=== PATIENT | female | born 2000 | race Two or more races ===

== ENCOUNTER 2024-09-24 17:07 | Outpatient (CLI) | payer OTHER ==
[~2024-09-24] VITALS: Ht 154.9 cm; Wt 80.1 kg
[2024-09-24 17:24] VITALS: BP 130/83
[2024-09-24] MEDS ORDERED: HOME MED LIST COMPLETE! XX SCH (17:30)
[2024-09-24] MEDS ORDERED: ACET-907 PO (17:30)
[2024-09-24 18:32] VITALS: BP 116/67
== END 2024-09-24 18:55 | disposition home or self-care (01) ==
LOC: M LDO 17:07
PROVIDERS: ATTEND Obstetrics & Gynecology
DX: O47.03 False labor before 37 completed weeks of gestation, third trimester (principal); O36.0139 Maternal care for anti-D [Rh] antibodies, third trimester, other fetus; Z3A.36 36 weeks gestation of pregnancy
CPT/HCPCS: 59025; G0463

== ENCOUNTER → 2024-09-24 | Outpatient (REF) | payer OTHER ==
[~2024-09-24] MED LIST: ACET-907 PO
== END ==
LOC: M SFHCWAGY 16:50
PROVIDERS: ATTEND Specialist
DX: Z34.03 Encounter for supervision of normal first pregnancy, third trimester (principal)

== ENCOUNTER 2024-10-17 07:50 | Inpatient (IN) | payer OTHER ==
[~2024-10-17] VITALS: Ht 154.9 cm; Wt 81.4 kg
[2024-10-17] VITALS (44 sets, daily range): BP systolic 91–186; BP diastolic 50–115
[2024-10-17] MEDS ORDERED: MIRA3350 PO (08:20)
[2024-10-17] MEDS ORDERED: HOME MED LIST COMPLETE! XX SCH (08:20)
[2024-10-17] MEDS: miSOPROStol 50MCG 1/2 TABLET SL SCH (09:00)
[2024-10-17] MEDS ORDERED: OXYTOCIN DRIP 30 UNITS in IV 1 EA IV PRN (09:00)
[2024-10-17] MEDS ORDERED: LIDOCAINE 1% MDV 20ML VIAL INFIL PRN (09:00)
[2024-10-17 09:09] LABS: HEMATOCRIT 30.7 % (36.0-47.0); HEMOGLOBIN 10.4 g/dl (12.0-15.5); MEAN CORPUSCULAR HEMOGLOBIN 30.1 pg (27.0-33.0); MEAN CORPUSCULAR HGB CONC 33.9 g/dl (32.0-36.5); PLATELET COUNT, AUTOMATED 240 10^3/uL (150-450); RED BLOOD COUNT 3.45 10^6/uL (4.00-5.40); WHITE BLOOD COUNT 7.9 10^3/uL (4.0-10.0)
[2024-10-17] MEDS ORDERED: EPIDURAL/PCA KEYS XX PRN (15:45)
[2024-10-17] MEDS ORDERED: NALOXONE INJ 0.4MG/1ML VIAL IV PRN (15:45)
[2024-10-17] MEDS ORDERED: diphenhydrAMINE 50MG/ML VIAL IV PRN (15:45)
[2024-10-17] MEDS: FENTANYL/ROPIVACAINE/NACL BAG 100 ML EPIDURAL SCH (16:08)
[2024-10-17] MEDS: OXYTOCIN DRIP 30 UNITS in IV 1 EA IV SCH (17:52)
[2024-10-17] MEDS: ePHEDrine SULFATE 25 MG/5 ML(5MG/ML) SYRINGE IVP PRN (20:18)
[2024-10-17] MEDS: LR 500 ML IV PRN (20:19)
[2024-10-17] MEDS: LR 1,000 ML IV SCH (20:54)
[2024-10-18] VITALS (18 sets, daily range): BP systolic 102–130; BP diastolic 53–66; TEMP 99.4; O2SAT 97–98
[2024-10-18] MEDS: ONDANSETRON 4MG 2ML VIAL IV PRN (01:08)
[2024-10-18] MEDS ORDERED: ceFAZolin 2 GM/D5W 50 ML IV BAG As Ordered ONE (01:47)
[2024-10-18] MEDS ORDERED: AZITHROMYCIN INJ 500MG VIAL As Ordered ONE (01:48)
[2024-10-18] MEDS: BICITRA 30ML SOLN UDC PO ONE (01:55)
[2024-10-18] MEDS: AZITHROMYCIN INJ 500 MG, VIAL MATE ADAPTER 1 EACH in NS 250 ML IV ONE (01:55)
[2024-10-18] MEDS: ceFAZolin SOD 2 GM in IV 1 EA IV ONE (01:55)
[2024-10-18] MEDS ORDERED: LIDOCAINE 2% W/EPINEPHRINE 20ML VIAL **PRES FREE As Ordered ONE (02:10)
[2024-10-18] MEDS ORDERED: ONDANSETRON 4MG 2ML VIAL As Ordered ONE (02:13)
[2024-10-18] MEDS ORDERED: KETOROLAC 60MG 2ML VIAL As Ordered ONE (02:13)
[2024-10-18] MEDS ORDERED: PHENYLephrine 500MCG 5ML (100MCG/ML) SYRINGE As Ordered ONE (02:21)
[2024-10-18] MEDS ORDERED: MORPHINE PRES-FREE INJ 10 MG/10 ML VIAL As Ordered ONE (02:25)
[2024-10-18 02:42] LABS: CORD GAS ABE A -4.7; CORD GAS ABE V -3.9; CORD GAS HCO3 A 21.5 MMOL/L; CORD GAS HCO3 V 21.2 MMOL/L; CORD GAS O2 SAT A 27.4 %; CORD GAS O2 SAT V 48.6 %; CORD GAS PCO2 A 43.9 mmHg; CORD GAS PCO2 V 38.9 mmHg; CORD GAS PH A 7.308 UNITS; CORD GAS PH V 7.354 UNITS; CORD GAS PO2 A 15.1 mmHg; CORD GAS PO2 V 20.9 mmHg; CORD GAS SBC V 20.1 MMOL/L; CORD GAS TCO2 A 22.9 MMOL/L; CORD GAS TCO2 V 22.4 MMOL/L
[2024-10-18] MEDS ORDERED: SIMETHICONE 80MG CHEW TAB PO PRN (02:50)
[2024-10-18] MEDS ORDERED: RHOGAM 300MCG (1500IU) INJ IM SCH (02:50)
[2024-10-18] MEDS ORDERED: HYDROMORPHONE HCL 0.5 MG/ 0.5 ML SYRINGE IV PRN ×2 (03:00→03:05)
[2024-10-18] MEDS ORDERED: fentaNYL 100 MCG/2 ML INJECTION IV PRN (03:05)
[2024-10-18] MEDS: fentaNYL 100 MCG/2 ML INJECTION IV PRN (03:33)
[2024-10-18] MEDS: diphenhydrAMINE 50MG/ML VIAL IV PRN (05:04)
[2024-10-18] MEDS: KETOROLAC 30 MG/ML 1ML VIAL IV SCH (07:35)
[2024-10-18] MEDS: LR 1,000 ML IV SCH (08:40)
[2024-10-18] MEDS: PRENATAL VITAMINS CHEWABLE TABLET PO SCH (09:34)
[2024-10-18] MEDS: PERCOCET 5MG/325MG TAB PO PRN ×2 (10:51→16:28)
[2024-10-19 02:00] VITALS: BP 110/58; O2SAT 97
[2024-10-19] MEDS: IBUPROFEN 800 MG TAB PO SCH (04:56)
[2024-10-19 06:00] VITALS: BP 117/59; O2SAT 97
[2024-10-19 06:21] LABS: HEMATOCRIT 22.8 % (36.0-47.0); MEAN CORPUSCULAR HEMOGLOBIN 30.4 pg (27.0-33.0); MEAN CORPUSCULAR HGB CONC 32.9 g/dl (32.0-36.5); MEAN CORPUSCULAR VOLUME 92.3 fl (80.0-96.0); PLATELET COUNT, AUTOMATED 182 10^3/uL (150-450); RED BLOOD COUNT 2.47 10^6/uL (4.00-5.40); WHITE BLOOD COUNT 9.4 10^3/uL (4.0-10.0)
[2024-10-19 06:32] LABS: HEMOGLOBIN 7.5 g/dl (12.0-15.5)
[2024-10-19] MEDS ORDERED: OXYC1TAB23 PO (06:50)
[2024-10-19] MEDS ORDERED: COLA100C5 PO (06:50)
[2024-10-19] MEDS ORDERED: IBUP80TA PO (06:50)
[2024-10-19 10:15] VITALS: BP 104/51; O2SAT 97
[2024-10-19] MEDS: IBUPROFEN 600MG TAB PO SCH (11:36)
[2024-10-19 14:12] VITALS: BP 119/67; O2SAT 96
[2024-10-19 17:54] VITALS: BP 109/68; O2SAT 98
[2024-10-19] MEDS: DOCUSATE SODIUM 100MG CAPSULE PO PRN (21:05)
[2024-10-20 02:01] VITALS: BP 109/53; O2SAT 96
[2024-10-20 06:00] VITALS: BP 130/68; O2SAT 95
[2024-10-20] MEDS: MEASLES,MUMPS,RUBELLA VACCINE INJ (MMR-II) SC.IMMUN ONE (09:00)
[2024-10-20 10:00] VITALS: BP 104/61; O2SAT 98
== END 2024-10-20 15:17 | disposition home or self-care (01) | DRG 788 ==
LOC: M LDI 07:50 → M OBS 10-18 06:44
PROVIDERS: ADMIT Specialist; ATTEND Specialist
PROC: 3E0P7GC Introduction of Other Therapeutic Substance into Female Reproductive, Via Natural or Artificial Opening (ICD-10-PCS; 2024-10-17)
PROC: 10D00Z1 Extraction of Products of Conception, Low, Open Approach (ICD-10-PCS; principal; 2024-10-18 01:38)
DX: O62.0 Primary inadequate contractions (principal); Z37.0 Single live birth; Z3A.40 40 weeks gestation of pregnancy

== ENCOUNTER → 2025-05-28 | Outpatient (CLI) | payer OTHER ==
[~2025-05-28] MED LIST changes: +COLA100C5 PO; +IBUP80TA PO; +ISOVUE-300 61% 100 ML VIAL As Ordered ONE; +LIDOCAINE 1% MDV 20 ML VIAL As Ordered ONE; +MIRA3350 PO; +OXYC1TAB23 PO; +TRIAMCINOLONE ACETONIDE SUSP 40MG/ML 1ML VIAL As Ordered ONE
== END ==
LOC: M RAD 13:17
PROVIDERS: ATTEND Physician Assistant Surgical
DX: S73.121A Ischiocapsular ligament sprain of right hip, initial encounter (principal); X58.XXXA Exposure to other specified factors, initial encounter; Y92.9 Unspecified place or not applicable
CPT/HCPCS: 20610; 77002; J3301; Q9967